=== PATIENT | female | born 1960 | race Caucasian/White ===

== ENCOUNTER 2021-07-21 08:21 | Outpatient (CLI) | payer OTHER | END 2021-07-21 08:22 | disposition home or self-care (01) | LOC: CSHMRI 08:21 | PROVIDERS: ATTEND Internal Medicine Hematology & Oncology | DX: C83.31 Diffuse large B-cell lymphoma, lymph nodes of head, face, and neck (principal); J34.89 Other specified disorders of nose and nasal sinuses | CPT/HCPCS: 70553 ==

== ENCOUNTER 2022-09-12 13:32 | Outpatient (CLI) | payer OTHER ==
[~2022-09-12 13:32] MED LIST: Iopamidol 300 61% 100 ML VIAL FS ONE; Magnevist 469MG/ML 20 ML VIAL ONE
== END 2022-09-12 13:33 | disposition home or self-care (01) ==
LOC: CSHCT 13:32
PROVIDERS: ATTEND Internal Medicine Hematology & Oncology
DX: C83.31 Diffuse large B-cell lymphoma, lymph nodes of head, face, and neck (principal); G93.9 Disorder of brain, unspecified
CPT/HCPCS: 70543; 70553; 71260; 74160

== ENCOUNTER 2023-02-27 12:20 | Outpatient (CLI) | payer OTHER | END 2023-02-27 12:21 | disposition home or self-care (01) | LOC: CSHCT 12:20 | PROVIDERS: ATTEND Internal Medicine Hematology & Oncology | DX: C83.31 Diffuse large B-cell lymphoma, lymph nodes of head, face, and neck (principal) | CPT/HCPCS: 70543; 70553; 71260; 74160; 82565; A9579; Q9967 ==

== ENCOUNTER 2023-08-29 12:19 | Outpatient (CLI) | payer OTHER ==
[~2023-08-29 12:19] MED LIST changes: -Iopamidol 300 61% 100 ML VIAL FS ONE
== END 2023-08-29 12:20 | disposition home or self-care (01) ==
LOC: CSHMRI 12:19
PROVIDERS: ATTEND Internal Medicine Hematology & Oncology
DX: C83.31 Diffuse large B-cell lymphoma, lymph nodes of head, face, and neck (principal); J34.89 Other specified disorders of nose and nasal sinuses
CPT/HCPCS: 70543; 70553; A9579

== ENCOUNTER 2024-02-26 11:52 | Outpatient (CLI) | payer OTHER | END 2024-02-26 11:53 | disposition home or self-care (01) | LOC: CSHMRI 11:52 | PROVIDERS: ATTEND Internal Medicine Hematology & Oncology | DX: C83.31 Diffuse large B-cell lymphoma, lymph nodes of head, face, and neck (principal); J34.9 Unspecified disorder of nose and nasal sinuses | CPT/HCPCS: 70543; 70553; 76377; A9579 ==

== ENCOUNTER 2025-05-30 09:01 | Outpatient (CLI) | payer OTHER | END 2025-05-30 09:02 | disposition home or self-care (01) | LOC: CSHMAMMO 09:01 | PROVIDERS: ATTEND Family Medicine | DX: N64.89 Other specified disorders of breast (principal) | CPT/HCPCS: G0279 ==